=== PATIENT | male | born 1980 | race Caucasian/White ===

== ENCOUNTER 2020-04-23 01:28 | Inpatient (IN) | payer SELFPAY ==
[~2020-04-23] VITALS: Ht 185.4 cm; Wt 104.3 kg
[2020-04-23] VITALS (7 sets, daily range): BP systolic 98–112; BP diastolic 66–76
[2020-04-23] MEDS ORDERED: SODIUM CHLORIDE 0.9% 1000ML 1,000 ML IV ONE ×2 (01:45→04:00)
[2020-04-23] MEDS ORDERED: MULTIVITAMINS- 12 INJECTION 10 ML, FOLIC ACID MDV 5 MG, THIAMINE HCL INJ 100 MG in SODI... IV ONE (01:45)
--- NOTE | 2020-04-23 02:00 | Emergency Department Note ---
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 Any updates have been documented here. Past Medical History Recent Fever: No Clinical Suspicion of Infectio: No New/Unexplained Change in Ment: No Past Medical History: Hepatitis C Other Medical History: BRONCHITIS SEIZURES Past Surgical History: None Social History Smoking Cessation: Current every day smoker Alcohol Use: Occasional Any Illegal Drug Use: Yes Family History Family history of heart diseas: No Review of Systems Review of Systems Constitutional: Reports no symptoms EENTM: Reports no symptoms Cardiovascular: Reports no symptoms Respiratory: Reports no symptoms Gastrointestinal: Reports no symptoms Genitourinary: Reports no symptoms Musculoskeletal: Reports no symptoms Integumentary: Reports no symptoms Neurological: Reports as per HPI Psychological: Reports no symptoms Endocrine: Reports no symptoms Hematological/Lymphatic: Reports no symptoms Physical Exam Related Data Allergies: Coded Allergies: No Known Allergies (Unverified , 04/23/20) Triage Vital Signs Vital Signs Date Time Temp Pulse Resp B/P (MAP) Pulse Ox O2 Delivery O2 Flow Rate FiO2 04/23/20 01:28 99.4 138 18 123/86 98 Room Air Vital signs reviewed: Yes Physical Exam CONSTITUTIONAL Constitutional: Present well-developed, Present well-nourished; Absent distressed HENT HENT: Present normocephalic, Present atraumatic, Present oropharynx clear/moist, Present nose normal, Present other (no injury to tongue or oral mucosa) HENT L/R: Present left ext ear normal, Present right ext ear normal EYES Eyes: Reports PERRL, Reports conjunctivae normal NECK Neck: Present ROM normal PULMONARY Pulmonary: Present effort normal, Present breath sounds normal CARDIOVASCULAR Cardiovascular: Present regular rhythm, Present heart sounds normal, Present capillary refill normal, Present tachycardia (130) GASTROINTESTINAL Abdominal: Present soft, Present nontender, Present bowel sounds normal GENITOURINARY Genitourinary: Present exam deferred SKIN Skin: Present warm, Present dry MUSCULOSKELETAL Musculoskeletal: Present ROM normal NEUROLOGICAL Neurological: Present alert, Present oriented x 3, Present no gross motor or s ensory deficits PSYCHOLOGICAL Psychological: Present mood/affect normal, Present judgement normal Results Laboratory Laboratory Laboratory Tests Test 04/23/20 04:05 04/23/20 04:00 04/23/20 03:27 04/23/20 03:17 Arterial Blood pH 7.47 (7.35-7.45) Arterial Blood Partial Pressure CO2 39 mmHg (35-45) Arterial Blood Partial Pressure O2 72 mmHg (80-105) Arterial Blood HCO3 29 mmol/L (22-26) Arterial Blood Total CO2 30 Arterial Blood Oxygen Saturation 95.0 % (95-98) Arterial Blood Base Excess 5.0 mmol/L (-2 - 3) FiO2 21 % Lactic Acid Level 2.9 mmol/L (0.5-2.0) Urine Color [place] (YELLOW) Urine Clarity Sl cloudy (CLEAR) Urine pH 6 (5 - 7) Urine Specific [place] 1.025 (1.010-1.025) Urine Protein 1+ (NEGATIVE) Urine Glucose (UA) 1+ (NEGATIVE) Urine Ketones 1+ (NEGATIVE) Urine Blood Trace (NEGATIVE) Urine Nitrite Positive (NEGATIVE) Urine Bilirubin Moderate (NEGATIVE) Urine Urobilinogen 8.0 mg/dL (0.2 - 1) Urine Leukocyte Esterase 1+ (NEGATIVE) Urine RBC 11-20 /HPF (0-5) Urine WBC >50 /HPF (0-5) Urine Epithelial Cells Few /LPF (NONE) Urine Transitional Epithelial Cells Few (NONE) Urine Renal Epithelial Cells (NONE) Urine Bacteria Many /HPF (NONE) Urine Opiates Screen Negative (NEGATIVE) Urine Methadone Screen Negative (NEGATIVE) Urine Barbiturates Screen Negative (NEGATIVE) Urine Phencyclidine Screen Negative (NEGATIVE) Urine Amphetamines Screen Negative (NEGATIVE) Urine Methamphetamines Screen Negative (NEGATIVE) Urine Benzodiazepines Screen Negative (NEGATIVE) Urine Cocaine Screen Negative (NEGATIVE) Urine Cannabinoids Screen Negative (NEGATIVE) Ammonia 59 UG/DL (31-123) Test 04/23/20 01:40 White Blood Count 5.55 x10e3/uL (4.8-10.8) Red Blood Count 3.41 x10e6/uL (4.3-5.7) Hemoglobin 11.8 g/dL (14.0-18.0) Hematocrit 33.1 % (38.2-49.6) Mean Corpuscular Volume 97.1 fL (81-99) Mean Corpuscular Hemoglobin 34.6 pg (28-32) Mean Corpuscular Hemoglobin Concent 35.6 g/dL (31-35) Red Cell Distribution Width 14.7 % (11.7-14.4) Platelet Count 104 x10e3/uL (140-360) Neutrophils (%) (Auto) 72.9 % (38.7-80.0) Lymphocytes (%) (Auto) 17.3 % (18.0-39.1) Monocytes (%) (Auto) 7.6 % (4.4-11.3) Eosinophils (%) (Auto) 0.2 % (0.0-6.0) Basophils (%) (Auto) 0.4 % (0.0-1.0) Neutrophils # (Auto) 4.1 (2.1-6.9) Lymphocytes # (Auto) 1.0 (1.0-3.2) Monocytes # (Auto) 0.4 (0.2-0.8) Eosinophils # (Auto) 0.0 (0.0-0.4) Basophils # (Auto) 0.0 (0.0-0.1) Absolute Immature Granulocyte (auto 0.09 x10e3/uL (0-0.1) Sodium Level 133 mmol/L (136-145) Potassium Level 3.2 mmol/L (3.5-5.1) Chloride Level 92 mmol/L (98-107) Carbon Dioxide Level 20 mmol/L (22-29) Anion Gap 24.2 mmol/L (8-16) Blood Urea Nitrogen 18 mg/dL (7-26) Creatinine 0.87 mg/dL (0.72-1.25) Estimat Glomerular Filtration Rate > 60 ML/MIN (60-) BUN/Creatinine Ratio 21 (6-25) Glucose Level 251 mg/dL (74-118) Calcium Level 9.3 mg/dL (8.4-10.2) Total Bilirubin 1.5 mg/dL (0.2-1.2) Aspartate Amino Transf (AST/SGOT) 157 IU/L (5-34) Alanine Aminotransferase (ALT/SGPT) 70 IU/L (0-55) Alkaline Phosphatase 123 IU/L (40-150) Creatine Kinase 20 IU/L (30-200) Creatine Kinase MB 0.30 ng/mL (0-5.0) Troponin I 0.002 ng/mL (0-0.300) Total Protein 7.0 g/dL (6.5-8.1) Albumin 3.4 g/dL (3.5-5.0) Globulin 3.6 g/dL (2.3-3.5) Albumin/Globulin Ratio 0.9 (0.8-2.0) Ethyl Alcohol Level < 10.0 mg/dL (0.0-10.0) Lab results reviewed: Yes Imaging Imaging results reviewed: Yes Impressions Procedure: [id number] CT/CT BRAIN WO Exam Date: Exam Time: REPORT STATUS: Signed CT BRAIN WO HISTORY: Seizure COMPARISON: None. TECHNIQUE: Noncontrast axial scans were obtained from skull base to the vertex. Coronal and sagittal reconstructions obtained from the axial data. One or more of the following dose reduction techniques were used: Automated exposure control, adjustment of the mA and/or kV according to patient size, and/or utilization of iterative reconstruction technique. DISCUSSION: Scalp/Skull: Unremarkable. Brain sulci: Mildly prominent. Ventricles: Mild compensatory dilatation. Extra-axial spaces: No masses or fluid collections. Parenchyma: No abnormal densities. No mass, hemorrhage, or large vascular territory acute infarct. Dural sinuses: No abnormal densities. Sellar/Suprasellar region: Intact. Skull base: Intact. Incidental findings: None. IMPRESSION: 1. No acute intracranial abnormalities. 2. Mild generalized cerebral volume loss. Signed by: Dr. Ike Aguayo M.D. on 04/23/2020 3:13 AM Dictated By: IKE AGUAYO MD [id number] Transcribed By: CATERINA on 04/23/20312 COPY TO: BINDU LIANG MD~ Procedures 12 Lead ECG Interpretation ECG Interpretation : ECG: ECG 1 Kit Planner: Interpreted by ED physician Date: Apr 23, 2020 Time: 01:34 Rhythm: sinus tachycardia Rate: tachycardia BPM: 141 QRS axis: normal ST segments normal: No (non specific changes) T wave inversion: I, II, V3, V4, V5, V6 Other findings: no other findings Clinical Impression: abnormal ECG Assessment & Plan Medical Decision Making MDM Patient presents believe EMS with reported seizure-like activity that lasted approximately 45 seconds. Patient alert and oriented on arrival. Patient states he has been told he had seizures in the past. Has never follow up with neurology. Patient has been drinking EtOH tonight and using marijuana. CBC, CMP, cardiac enzymes, UA, UDS, EtOH, CT brain ordered to eval for electrolyte abnormality, intracranial mass, intracranial bleed, rhabdomyolysis, illicit drug abuse, EtOH Banana bag ordered at 250 mL per hour 1 L. IV normal saline 1 L bolus ordered. 0350 am, pt found to have uti, source time is now, lactic acid ordered, blood cultures ordered, urine culture ordered, rocephin 1 gram iv ordered INITIAL LACTIC ACID 2.[address] GUILLEN ADMIT TO INPATIENT Reassessment Reassessment time: 04:23 Reassessment PT STATES HE FEELS FINE, NO COMPLAINTS AT THIS TIME Assessment & Plan Final Impression: (1) Seizure-like activity (2) UTI (urinary tract infection) (3) Sepsis (4) Dehydration (5) Diabetes Depart Disposition: ADMITTED Last Vital Signs Date Time Temp Pulse Resp B/P (MAP) Pulse Ox O2 Delivery O2 Flow Rate FiO2 04/23/20 01:51 138 22 138/93 97 Room Air 04/23/20 01:28 99.4 Medications in the ED Multivitamins 10 ml/Folic Acid 5 mg/Thiamine HCl 100 mg/Sodium Chloride 1,012 ml @ 250 mls/hr Q4H3M ONCE IV ; Start 04/23/20 at 01:45; Stop 04/23/20 at 05:47 Sodium Chloride 1,000 ml @ 999 mls/hr Q1H1M ONCE IV ; Start 04/23/20 at 01:45; Stop 04/23/20 at 02:45 BINDU LIANG MD Apr 23, 2020 02:00
[2020-04-23] MEDS ORDERED: SODIUM CHLORIDE 0.9% 1000ML 1,000 ML ONE ×2 (02:04→03:53)
[2020-04-23 02:19] LABS: BASOPHILS % 0.4 % (0.0-1.0); EOSINOPHILS % 0.2 % (0.0-6.0); HEMATOCRIT 33.1 % (38.2-49.6); HEMOGLOBIN 11.8 g/dL (14.0-18.0); LYMPHOCYTES % 17.3 % (18.0-39.1); MEAN CORPUSCULAR HEMOGLOBIN 34.6 pg (28-32); MEAN CORPUSCULAR HGB CONC 35.6 g/dL (31-35); MEAN CORPUSCULAR VOLUME 97.1 fL (81-99); MONOCYTES # (AUTO) 0.4 (0.2-0.8); MONOCYTES % 7.6 % (4.4-11.3); NEUTROPHILS # (AUTO) 4.1 (2.1-6.9); NEUTROPHILS % 72.9 % (38.7-80.0); PLATELET COUNT 104 x10e3/uL (140-360); RED BLOOD COUNT 3.41 x10e6/uL (4.3-5.7); RED CELL DISTRIBUTION WIDTH 14.7 % (11.7-14.4)
[2020-04-23 02:32] LABS: ALANINE AMINOTRANSFERASE 70 IU/L (0-55); ALBUMIN 3.4 g/dL (3.5-5.0); ALBUMIN/GLOBULIN RATIO 0.9 (0.8-2.0); ALKALINE PHOSPHATASE 123 IU/L (40-150); ANION GAP 24.2 mmol/L (8-16); BLOOD UREA NITROGEN 18 mg/dL (7-26); BUN/CREATININE RATIO 21 (6-25); CALCIUM 9.3 mg/dL (8.4-10.2); CARBON DIOXIDE 20 mmol/L (22-29); CHLORIDE 92 mmol/L (98-107); CREATININE, SERUM 0.87 mg/dL (0.72-1.25); EST GLOMERULAR FILTRATION RATE > 60 ML/MIN (60-); GLUCOSE 251 mg/dL (74-118); POTASSIUM 3.2 mmol/L (3.5-5.1); SODIUM 133 mmol/L (136-145)
[2020-04-23 02:52] LABS: CREATINE KINASE MB 0.3 ng/mL (0-5.0)
--- NOTE | 2020-04-23 03:16 | Diagnostic Imaging Report ---
CT BRAIN WO HISTORY: Seizure COMPARISON: None. TECHNIQUE: Noncontrast axial scans were obtained from skull base to the vertex. Coronal and sagittal reconstructions obtained from the axial data. One or more of the following dose reduction techniques were used: Automated exposure control, adjustment of the mA and/or kV according to patient size, and/or utilization of iterative reconstruction technique. DISCUSSION: Scalp/Skull: Unremarkable. Brain sulci: Mildly prominent. Ventricles: Mild compensatory dilatation. Extra-axial spaces: No masses or fluid collections. Parenchyma: No abnormal densities. No mass, hemorrhage, or large vascular territory acute infarct. Dural sinuses: No abnormal densities. Sellar/Suprasellar region: Intact. Skull base: Intact. Incidental findings: None. IMPRESSION: 1. No acute intracranial abnormalities. 2. Mild generalized cerebral volume loss. Signed by: Dr. Ike Taylor M.D. on 04/23/2020 3:13 AM
[2020-04-23 03:33] LABS: AMPHETAMINES SCREEN,URINE NEGATIVE (NEGATIVE); PHENCYCLIDINE SCREEN,URINE NEGATIVE (NEGATIVE)
[2020-04-23 03:34] LABS: BENZODIAZEPINES SCREEN,URINE NEGATIVE (NEGATIVE); CLARITY,URINE SL CLOUDY (CLEAR); COLOR,URINE ORANGE (YELLOW); KETONES,URINE 1+ (NEGATIVE); LEUKOCYTE ESTERASE ,URINE 1+ (NEGATIVE); NITRITE,URINE POSITIVE (NEGATIVE); PROTEIN,URINE DIPSTICK 1+ (NEGATIVE)
[2020-04-23 03:35] LABS: BILIRUBIN,URINE MODERATE (NEGATIVE)
[2020-04-23 03:49] LABS: BACTERIA,URINE MANY /HPF; EPITHELIAL CELLS,URINE FEW /LPF; TRANSITIONAL EPI CELLS,URINE FEW; WBC,URINE (MAN) >50 /HPF (0-5)
[2020-04-23] MEDS ORDERED: CEFTRIAXONE SOD 1 GM/NS 50 ML 50 ML IV ONE (04:00)
[2020-04-23 04:17] LABS: ABG HCO3 29 mmol/L (22-26); ABG PCO2 39 mmHg (35-45); ABG PH 7.47 (7.35-7.45); ABG PO2 72 mmHg (80-105); ABG TCO2 30
[2020-04-23] MEDS ORDERED: POTASSIUM CHLORIDE 20 MEQ TAB CR PO STA (04:20)
--- NOTE | 2020-04-23 04:22 | NUR ---
ER MD AND PRIMARY RN NOTIFIED AND AWARE OF CRITICAL LAB VALUE, LACTIC ACID 2.9.
[2020-04-23] MEDS: SODIUM CHLORIDE 0.9% 1000ML 1,000 ML IV SCH ×4 (04:28→21:02)
[2020-04-23] MEDS ORDERED: ONDANSETRON HCL INJ 2MG/ML 2ML 2 MG/ML VIAL IV PRN (04:30)
[2020-04-23] MEDS ORDERED: POTASSIUM CHLORIDE 10MEQ EA PO ONE (04:30)
[2020-04-23] MEDS ORDERED: DEXTROSE 50% SYRINGE 50 ML IV PRN (04:30)
[2020-04-23] MEDS ORDERED: POTASSIUM CHLORIDE 10MEQ EA ONE (04:34)
--- NOTE | 2020-04-23 04:42 | Diagnostic Imaging Report ---
EXAMINATION: CHEST SINGLE (PORTABLE) INDICATION: s/p seizure COMPARISON: None FINDINGS: TUBES and LINES: None. LUNGS: Normal lung volumes. Lungs are clear. No consolidations. PLEURA: No pleural effusion or pneumothorax. HEART AND MEDIASTINUM: The cardiomediastinal silhouette is unremarkable. BONES AND SOFT TISSUES: No acute osseous lesion. Soft tissues are unremarkable. UPPER ABDOMEN: No free air under the diaphragm. IMPRESSION: No acute thoracic radiographic abnormality. Signed by: Justin Ying MD on 04/23/2020 4:38 AM
--- NOTE | 2020-04-23 06:15 | NUR ---
PATIENT RECEIVED FROM ER. PATIENT IS AAOX2, INTERMITTENT CONFUSION. RESP EVEN AND UNLABORED. NO ACUTE DISTRESS NOTED. TELE IN PLACE NOTED. ORIENTED TO ROOM. EDUCATED PT ABOUT FALL PRECAUTIONS. PT VERBALIZED UNDERSTANDING. CALL LIGHT WITHIN EASY REACH. INSTRUCTED PT TO USE CALL LIGHT FOR ALL THE NEEDS. BED IS LOW AND LOCKED. SIDE RAILS X2. PT DENIES NEEDS AT THIS TIME. CONTINUE TO MONITOR CLOSELY
[2020-04-23] MEDS: INSULIN REGULAR, HUMAN 100 UNIT/1 ML 3ML VIAL SQ SCH ×4 (07:30→21:03)
[2020-04-23] MEDS ORDERED: ACETAMINOPHEN 325 MG TAB PO PRN (09:00)
[2020-04-23 10:14] LABS: CREATINE KINASE MB 0.4 ng/mL (0-5.0)
[2020-04-23] MEDS: CEFEPIME 1GM/NS 0.9% 50 ML 50 ML IV SCH ×2 (11:04→21:02)
[2020-04-23] MEDS ORDERED: CYANOCOBALAMIN 1,000 MCG TAB PO ONE (13:15)
[2020-04-23 15:38] LABS: THYROID STIMULATING HORMONE 0.894 uIU/mL (0.350-4.940)
[2020-04-23 16:08] LABS: PHENYTOIN (DILANTIN) < 0.50 ug/mL (10-20); VALPROIC ACID < 2 ug/mL (50-100)
[2020-04-23] MEDS: LEVETIRACETAM 500 MG TAB PO SCH (16:13)
--- NOTE | 2020-04-23 16:38 | Consultation ---
DATE OF CONSULTATION: 04/23/2020 Neurology Consultation HISTORY OF PRESENT ILLNESS: Mr. Abraham Tolentino is a 39-year-old male, who reports history of diabetes and comes in for nocturnal seizures. He is very confused. He is a very poor historian. He seems to be somewhat disoriented to this situation, although he does know he is in the hospital. He knows he is here for seizures. He states he has slept well in the last 5 days and he falls asleep multiple times during our physical exam and conversations, suggesting encephalopathy or possibly even narcolepsy or sleep disorder. He states that he had a seizure and he was brought in by an ambulance because his girlfriend was with him. At that time, he himself does not recall. He states he has at least 5 seizures in the last 3 years. He was put on antiepileptic therapy, although during the conversation, he mentions that he did have once as a teenager and also during the conversation, he mentions that he has had possibly 10 seizures since he was a teenager. Again, his history is somewhat disjointed and he is a poor historian. Otherwise states he has been under a lot of stress. He has not been taking his medications as prescribed, although he is not taking antiepileptics. He should be on diabetes medications. His issues are primarily familial and financial that have been interrupting his normal self care routines. He does admit to drinking in the past, but has not been drinking recently. His UA is positive and he also admits to multiple concussions in the past, although none recently. FAMILY HISTORY: Positive for stroke. No epilepsy. SOCIAL HISTORY: Mentioned above. He has a history of alcohol use, but no tobacco or drugs. PHYSICAL EXAMINATION: VITAL SIGNS: Stable at this time. His temperature is 97.9. He is tachycardic 103. His blood pressure 109/75. HEENT: His exam shows extraocular muscles intact. Face symmetric. Tongue is midline. Speech is clear and coherent, although he is distractible. He falls asleep during the exam. His sentence structure is normal. He has no nuchal rigidity. His trachea is midline. There are no rashes in the axilla. He is not dysarthric to the exam, although he told me that another physician mentioned that he was dysarthric. I did not notice in this exam. CARDIOVASCULAR: Regular rate and rhythm. PULMONARY: Clear to auscultation. ABDOMEN: Soft. There is no bladder distention. There is no ascites in the abdomen. NEUROLOGIC: Strength is 5/5 in upper and lower extremities. Reflexes are 1/4. Sensory is grossly intact. There is no ataxia or tremors noted on exam. There is no myotonia or fasciculations noted on exam. ASSESSMENT AND PLAN: I am seeing the patient for seizure, definitely not a first-time event, but how frequently is unclear whether or not he should be on medications. He seems to state that he should not be on medications, although he has been on them in the past, despite having had 5 seizures in about 2 to 3 years. He does state that he has had a seizure workup, but he is okay repeating it, so we are going to get an EEG. I would recommend an MRI of the brain as well as serological test for ammonia, uric acid, and B12 levels given his level of cognitive difficulty at this point. We will initiate him on Keppra 500 p.o. b.i.d. as well as thiamine and then speech evaluation is also recommended. RYAN KING MD RR/MODL /[id number]
[2020-04-23 17:00] LABS: CREATINE KINASE MB 0.4 ng/mL (0-5.0)
--- NOTE | 2020-04-23 18:48 | NUR ---
Report given to oncoming nurse of patients status. Resting in bed. AAOX3 to time, person, place. Respirations even and unlabored. Side rails upx2, call light within reach. Addendum: 04/23/20 at 1849 by CHANTALE EMERSON RN ERROR
--- NOTE | 2020-04-23 19:07 | NUR ---
Report given to oncoming nurse of patient's status. NO s/s acute distress noted. Side rails upx2, call light within reach, bed alarm on.
--- NOTE | 2020-04-23 19:15 | NUR ---
PATIENT RECEIVED. PATIENT IS AAOX2 WITH INTERMITTENT CONFUSION. RESP EVEN AND UNLABORED. NO ACUTE DISTRESS NOTED. TELE IN PLACE NOTED. EDUCATED PT ABOUT FALL PRECAUTIONS. PT VERBALIZED UNDERSTANDING. CALL LIGHT WITHIN EASY REACH. INSTRUCTED PT TO USE CALL LIGHT FOR ALL THE NEEDS. BED IS LOW AND LOCKED. SIDE RAILS X2. BED ALARM IS ON. PT DENIES NEEDS AT THIS TIME. CONTINUE TO MONITOR CLOSELY
--- NOTE | 2020-04-23 19:18 | History and Physical ---
CHIEF COMPLAINT: Questionable seizure-like activity. HISTORY OF PRESENT ILLNESS: Information currently being obtained from the nursing staff as the patient seems to be a bit confused and unable to give me the full history. This is a 39-year-old male, who apparently came in yesterday with concern for seizure-like activity. According to the nursing staff and the patient's girlfriend called and stated that he had some seizures and he does not have a history of seizures and this all occurred yesterday and brought him in for further evaluation and management. Apparently, the patient is a chronic alcoholic and he also abuses marijuana. He reports his last alcohol drink was weeks ago, but after further investigation, he reports that his last drink was maybe several days ago. He also endorses taking marijuana at home. He stated several days ago. His urine drug screen was found to be negative as well as alcohol level. The patient was alert, awake. He was oriented x2 on examination. He has no pain at this time. According to the nursing staff, the girlfriend states that he has not been able to walk for significant period of time as well ongoing for the last 2 to 3 weeks. The patient is very weak on examination. The patient is seen and evaluated at bedside on the medical floor, currently stable on examination. REVIEW OF SYSTEMS: Pertinent positive questionable seizure-like activity, confusion. Unable to obtain the rest of the 14-point review of system due to the patient's underlying confusion. ALLERGIES: NO KNOWN DRUG ALLERGIES. HOME MEDICATIONS: None. PAST MEDICAL HISTORY: None. PAST SURGICAL HISTORY: None. FAMILY HISTORY: None. SOCIAL HISTORY: He is a chronic alcoholic, reported drinking several weeks ago, but then endorsed that he drank several days ago, drinks about a 12 pack every two days. He has a history of marijuana usage. Denies any other drugs. He reports no reports of any smoking history. PHYSICAL EXAMINATION: VITAL SIGNS: Temperature is 97.8, pulse is 120, respiratory rate is 21. His last blood pressure recorded was 98/66, but he is stable. He is saturating 100% on room air. GENERAL: Note in acute distress. He is alert, oriented x2. He is a bit confused on examination. HEENT: Head normocephalic, atraumatic. Eyes; pupils are equal, round, and reactive to light bilaterally. PULMONARY: Clear to auscultation bilaterally. No wheezing, rales, or rhonchi. No crackles appreciated. CARDIOVASCULAR: Positive S1, S2. No murmurs, rubs, or gallops. ABDOMEN: Soft, nondistended, nontender to palpation. Bowel sounds present. MUSCULOSKELETAL: Strength 5/5 throughout. He is very weak on examination. NEUROLOGICAL: He is confused on exam, but he is alert, oriented, may be possibly x2. SKIN: Intact. Warm to touch. Good cap refill. PSYCHIATRIC: Confused on examination. EXTREMITIES: No edema. Good range of motion throughout. LABORATORY FINDINGS: Show white count was 5.5, hemoglobin 11.8, hematocrit 33, platelets of 104. Chemistry, sodium was 133, potassium 3.2, chloride 92, bicarb is 20, anion gap of 24, BUN is 18, creatinine is 0.87, glucose is 251. His hemoglobin A1c found to be 5.2. His calcium level 9.3. Lactic acid on admission 2.9, now 1.6, AST 157, ALT 70, alkaline phosphatase is 123. Ammonia level was 59, albumin 3.4. TSH is 0.894. Urinalysis consistent for UTI. Toxicology urine drug screen negative. Phenytoin, valproic acid negative. Ethyl alcohol was negative. Phenobarbital level is pending. Serology coronavirus pending. Microbiology, blood and urine cultures are pending. IMAGING STUDIES: CT of the brain, no acute intracranial abnormality. Mild generalized cerebral volume loss. Chest x-ray, no acute thoracic radiographic abnormality. IMPRESSION: 1. Metabolic encephalopathy, unknown etiology, but concern for polysubstance abuse. 2. Urinary tract infection. 3. Generalized weakness. 4. Polysubstance abuse. 5. Electrolyte abnormalities. 6. Concerns for underlying seizures. At this time, CT brain was found to be negative. MRI of the brain and EEG has been ordered. Neurology has been consulted and the patient was initiated on Keppra. As for his UTI, he is currently on IV cefepime, monitored cultures very closely. His white count was normal. He is currently afebrile. As for his generalized weakness, I will go ahead and get physical therapy as well to come work with the patient. He does have a history of polysubstance abuse and his urine drug screen and his alcohol level is normal. As for his seizures, he was started on Keppra. Put him on a regular diet. Hold anticoagulation for now until MRI of the brain is back in negative. Put on SCDs. The patient seems to be confused on exam. Etiology is pending workup. Consultants involved neurology. Discussed plan of care with nursing staff. MD ALEX Parmar/SUSANA /[id number]
[2020-04-24] VITALS (8 sets, daily range): BP systolic 99–117; BP diastolic 69–81
[2020-04-24] MEDS ORDERED: CEFTRIAXONE SOD 1 GM/NS 50 ML 50 ML IV SCH (04:30)
[2020-04-24] MEDS: INSULIN REGULAR, HUMAN 100 UNIT/1 ML 3ML VIAL SQ SCH ×4 (07:30→21:00)
[2020-04-24 07:35] LABS: BASOPHILS % 0.6 % (0.0-1.0); EOSINOPHILS % 1.3 % (0.0-6.0); HEMATOCRIT 28.7 % (38.2-49.6); LYMPHOCYTES # (AUTO) 1.3 (1.0-3.2); LYMPHOCYTES % 42.8 % (18.0-39.1); MEAN CORPUSCULAR HEMOGLOBIN 34.2 pg (28-32); MEAN CORPUSCULAR HGB CONC 31.4 g/dL (31-35); MEAN CORPUSCULAR VOLUME 109.1 fL (81-99); MONOCYTES # (AUTO) 0.3 (0.2-0.8); MONOCYTES % 9.9 % (4.4-11.3); NEUTROPHILS # (AUTO) 1.3 (2.1-6.9); NEUTROPHILS % 41.9 % (38.7-80.0); PLATELET COUNT 92 x10e3/uL (140-360); RED BLOOD COUNT 2.63 x10e6/uL (4.3-5.7); RED CELL DISTRIBUTION WIDTH 15.4 % (11.7-14.4)
[2020-04-24] MEDS: CEFEPIME 1GM/NS 0.9% 50 ML 50 ML IV SCH ×2 (08:14→21:00)
[2020-04-24] MEDS: LEVETIRACETAM 500 MG TAB PO SCH ×2 (08:14→17:13)
[2020-04-24] MEDS: THIAMINE HCL 100 MG TAB PO SCH (08:15)
[2020-04-24] MEDS: SODIUM CHLORIDE 0.9% 1000ML 1,000 ML IV SCH (08:19)
[2020-04-24 08:20] LABS: ALANINE AMINOTRANSFERASE 106 IU/L (0-55); ALBUMIN 2.8 g/dL (3.5-5.0); ALKALINE PHOSPHATASE 89 IU/L (40-150); ANION GAP 16.5 mmol/L (8-16); BLOOD UREA NITROGEN 8 mg/dL (7-26); BUN/CREATININE RATIO 14 (6-25); CARBON DIOXIDE 22 mmol/L (22-29); CHLORIDE 106 mmol/L (98-107); CREATININE, SERUM 0.57 mg/dL (0.72-1.25); EST GLOMERULAR FILTRATION RATE > 60 ML/MIN (60-); GLUCOSE 114 mg/dL (74-118); POTASSIUM 3.5 mmol/L (3.5-5.1); SODIUM 141 mmol/L (136-145)
--- NOTE | 2020-04-24 11:09 | NUR ---
GAVE PACKET OF INFORMATION WITH [facility] [employer] FOR ASSISTANCE WITH LOW TO NO INCOME TO PATIENT. RESOURCES THAT PATIENT MAY BE ABLE TO FOLLOW UP UPON DISCHARGE. PT EDUCATED ON EACH RESOURCE AND UNDERSTANDING HOW TO FOLLOW UP TO SEE IF QUALIFIED FOR EACH RESOURCE.
--- NOTE | 2020-04-24 12:11 | NUR ---
awake less sleepy than yesterday and more oriented but still confused he does remember me from yesterday. so short term memory seems intact vs patient confabulation 98.4 107 113/72 HEENT: His exam shows extraocular muscles intact. Face symmetric. Tongue is midline. Speech is clear and coherent, although he is distractible. He falls asleep during the exam. His sentence structure is normal. He has no nuchal rigidity. His trachea is midline. There are no rashes in the axilla. He is not dysarthric to the exam CARDIOVASCULAR: Regular rate and rhythm. PULMONARY: Clear to auscultation. ABDOMEN: Soft. There is no bladder distention. There is no ascites in the abdomen. NEUROLOGIC: Strength is 5/5 in upper and lower extremities. Reflexes are 1/4. Sensory is grossly intact. There is no ataxia or tremors noted on exam. There is no myotonia or fasciculations noted on exam. ASSESSMENT AND PLAN: confabulation vs short term memory difficuly- seems to be improving- speech and congitive therapy and rehab continue b12/b1 continue keppra x 6 mo outpt neurology follow up myoglobin pending
--- NOTE | 2020-04-24 16:49 | Diagnostic Imaging Report ---
EXAMINATION: MRI of the brain without contrast. HISTORY: Confusion, diabetes, dehydration COMPARISON: Head CT 04/23/2020 TECHNIQUE: Sagittal T2; axial DWI, T2, FLAIR, T1-IR, T2 gradient echo; coronal FLAIR. FINDINGS: Parenchyma: 1. No abnormal signal intensity 2. No mass, hemorrhage, acute or chronic infarcts. Skull: Unremarkable. Vessels: Expected flow voids present in the major arteries and dural sinuses. Extra-axial spaces: No abnormal signal intensity or mass effect. Brain volume: Mild generalized brain volume loss, slightly more than what is expected for patient's age. Ventricles: No hydrocephalus or displacement. Foramen magnum: Unremarkable. Sella: Unremarkable. Paranasal / mastoid sinuses: No significant inflammatory disease. IMPRESSION: No acute intracranial abnormalities, particularly no infarct, hemorrhage or mass. Signed by: Dr. Marti Liu M.D. on 04/24/2020 4:46 PM
--- NOTE | 2020-04-24 19:20 | NUR ---
Report given to oncoming nurse of patient's status. Resting in bed. AAOX2 person,place. Respirations even and unlabored. Side rails upx2, call light within reach, bed alarm on.
--- NOTE | 2020-04-24 20:06 | NUR ---
RECEIVED PT IN BED AOX2 .RESPIRATIONS ARE EVEN AND UNLABORED ,DENIES PAIN CALL LIGHT WITH IN REACH ,CONTINUE TO MONITOR
[2020-04-25] VITALS (7 sets, daily range): BP systolic 100–123; BP diastolic 64–94
[2020-04-25] MEDS: SODIUM CHLORIDE 0.9% 1000ML 1,000 ML IV SCH ×2 (00:24→13:51)
--- NOTE | 2020-04-25 02:29 | Progress Note ---
DATE: 04/24/2020 Medicine Progress Note SUBJECTIVE: The patient seems to be still confused on examination and at times he is awake, alert, and oriented and at times, he is confused. PHYSICAL EXAMINATION: VITAL SIGNS: Temperature is 99, pulse 114, respiratory rate is 19, blood pressure 138/74, pulse ox 98% on room air. GENERAL: Not in acute distress. Alert and oriented x2. PULMONARY: Clear to auscultation bilaterally. No wheezing, rales, or rhonchi. No crackles appreciated. CARDIOVASCULAR: Positive S1, S2. No murmurs, rubs, or gallops. ABDOMEN: Soft, nondistended, nontender to palpation. Bowel sounds present. MUSCULOSKELETAL: Strength 5/5 throughout. No evidence of any muscle deficits on examination. NEUROLOGICAL: Alert and oriented x2, still confused on examination. SKIN: Intact. Warm to touch. Good cap refill. PSYCHIATRIC: Normal affect and mood. EXTREMITIES: No edema. Good range of motion throughout. LABORATORY DATA: Show white count 3.1, hemoglobin 9, hematocrit 28.7, platelets of 192. Chemistry; sodium 139, potassium 3.5, chloride 106, bicarb 22, anion gap of glucose 114, hemoglobin A1c 5.2. Uric acid was found to be 8 and total bilirubin is 1.2. AST was 604. ALT , alkaline phosphatase is 89. Ammonia level was 88 within normal range. TSH level was 5.894. Prolactin level, none reported. Coronavirus pending. Microbiology, blood cultures, no growth to date. Urine cultures, no growth. IMAGING STUDIES: MRI of the brain, no acute intracranial abnormalities particularly mass effect. EEG pending. IMPRESSION: 1. Metabolic encephalopathy of unknown etiology, but concern for polysubstance abuse. 2. Urinary tract infection. 3. Generalized weakness. 4. Polysubstance abuse. 5. Electrolyte abnormalities. 6. Concerns for underlying seizures. PLAN: At this time, CT brain negative, EEG is pending. Neurology is following. He is on Keppra. As for his UTI, he is on IV antibiotics. Blood cultures, no growth in terms of blood and urine. Get repeat labs in the morning. Work with physical therapy and occupation therapy as he is very weak. Urine drug screen was found to be negative including alcohol level. Continue with Lovenox for DVT prophylaxis. Consultants involved is Neurology. MD ALEX Parmar/SUSANA /[id number]
[2020-04-25 05:26] LABS: BASOPHILS % 0.5 % (0.0-1.0); EOSINOPHILS # (AUTO) 0.1 (0.0-0.4); EOSINOPHILS % 1.7 % (0.0-6.0); HEMATOCRIT 26.1 % (38.2-49.6); HEMOGLOBIN 8.7 g/dL (14.0-18.0); LYMPHOCYTES # (AUTO) 1.8 (1.0-3.2); LYMPHOCYTES % 44.1 % (18.0-39.1); MEAN CORPUSCULAR HEMOGLOBIN 33.9 pg (28-32); MEAN CORPUSCULAR HGB CONC 33.3 g/dL (31-35); MEAN CORPUSCULAR VOLUME 101.6 fL (81-99); MONOCYTES # (AUTO) 0.5 (0.2-0.8); NEUTROPHILS # (AUTO) 1.5 (2.1-6.9); NEUTROPHILS % 34.7 % (38.7-80.0); PLATELET COUNT 109 x10e3/uL (140-360); RED BLOOD COUNT 2.57 x10e6/uL (4.3-5.7); RED CELL DISTRIBUTION WIDTH 15.2 % (11.7-14.4)
[2020-04-25 05:55] LABS: ANION GAP 13.7 mmol/L (8-16); BLOOD UREA NITROGEN 8 mg/dL (7-26); BUN/CREATININE RATIO 14 (6-25); CALCIUM 8.4 mg/dL (8.4-10.2); CARBON DIOXIDE 25 mmol/L (22-29); CHLORIDE 105 mmol/L (98-107); CREATININE, SERUM 0.58 mg/dL (0.72-1.25); EST GLOMERULAR FILTRATION RATE > 60 ML/MIN (60-); GLUCOSE 113 mg/dL (74-118); POTASSIUM 3.7 mmol/L (3.5-5.1); SODIUM 140 mmol/L (136-145)
--- NOTE | 2020-04-25 06:47 | NUR ---
PT IS CONFUSED OFF AND ON AND PULLED THE IV OUT AND PUT NEW ONE LEFT WRIST DENIES PAIN ,CALL LIGHT WITH IN REACH ,CONTINUE TO MONITOR
[2020-04-25] MEDS: INSULIN REGULAR, HUMAN 100 UNIT/1 ML 3ML VIAL SQ SCH ×4 (07:30→21:38)
--- NOTE | 2020-04-25 07:54 | NUR ---
BEDSIDE REPORT GIVEN TO THE ONCOMING NURSE
[2020-04-25] MEDS ORDERED: LORAZEPAM 0.5 MG TAB PO PRN (09:45)
[2020-04-25] MEDS ORDERED: RISPERIDONE 0.5 MG TAB PO PRN (09:45)
--- NOTE | 2020-04-25 10:17 | NUR ---
eeg - 30 min 10/20 international electrode placement eeg data posterior dominant rythm - 9hz reactive anterior beta frequency 16-22hz no sleep captured EEG interpretation normal no abnormalities noted on EEG
--- NOTE | 2020-04-25 10:21 | NUR ---
awake less sleepy than yesterday and more oriented but still confused he does remember me from yesterday. so short term memory seems intact vs patient confabulation 99 114 103/74 HEENT: His exam shows extraocular muscles intact. Face symmetric. Tongue is midline. Speech is clear and coherent, although he is distractible. He falls asleep during the exam. His sentence structure is normal. He has no nuchal rigidity. His trachea is midline. There are no rashes in the axilla. He is not dysarthric to the exam CARDIOVASCULAR: Regular rate and rhythm. PULMONARY: Clear to auscultation. ABDOMEN: Soft. There is no bladder distention. There is no ascites in the abdomen. NEUROLOGIC: Strength is 5/5 in upper and lower extremities. Reflexes are 1/4. Sensory is grossly intact. There is no ataxia or tremors noted on exam. There is no myotonia or fasciculations noted on exam. ASSESSMENT AND PLAN: confabulation vs short term memory difficuly- seems to be improving- speech and congitive therapy and rehab continue b12/b1 continue keppra x 6 mo outpt neurology follow up myoglobin pending confusion is short term memory diffiuclty, no evidence of subclinical seizure but should be on AED at least 6 mo reorient and speech and congnitive therapy neurocognitive testing as outpt
[2020-04-25] MEDS: LEVETIRACETAM 500 MG TAB PO SCH ×2 (10:25→17:21)
[2020-04-25] MEDS: THIAMINE HCL 100 MG TAB PO SCH (10:25)
[2020-04-25] MEDS: CEFEPIME 1GM/NS 0.9% 50 ML 50 ML IV SCH ×2 (10:27→20:56)
[2020-04-25 11:43] LABS: BAND NEUTROPHILS % (MANUAL) 4 %; MONOCYTES % (MANUAL) 10 % (3.4-9.0); NEUTROPHILS % (MANUAL) 86 % (40-74)
--- NOTE | 2020-04-25 12:37 | Consultation ---
DATE OF CONSULTATION: 04/25/2020 Psychiatric Consultation REASON FOR CONSULTATION: To evaluate the patient's psychosis. HISTORY OF PRESENT ILLNESS: The patient is a 39-year-old male admitted to the hospital for dehydration and diabetes. Psychiatric consultation is called to evaluate the patient's psychosis. As per medical record, the patient has history of UTI, history of alcohol and marijuana, and history of diabetes. The patient came to the hospital confused and poor historian. He was brought by the ambulance, but he was not able to report to the attending or managing consultant clinical professor why he is in the hospital. He also reported seizures within the last 3 years. Upon evaluation today, the patient is found to be in the room. He is oriented to self and place and year, and knows the current president of [facility], however, he is unable to state the reason why he is in the hospital. He claims that he was taken to the hospital by his for unknown reason, although medical note indicated that he was taken to the hospital by the ambulance for some seizure-like activity. The patient claims he is feeling fair at this time. He is somewhat stressed and I believe that his dad's medical issues may worsen and believes that his dad recently . However, the patient states that he is not too distressed about this. The father has been in a lot of pain. The patient denies any feeling of hopelessness or helplessness. He denies any suicidal or homicidal ideation. He denies any hallucination. He denies any problem with sleep or appetite. PAST PSYCHIATRIC HISTORY: The patient states he has seen psychiatrist before for stress-related issues. He denies past suicide attempts. He claims he drinks about 2 or 3 times a day, but mostly during day and about 2 or 3 shots of hard liquor. The patient denies any drug use. FAMILY HISTORY: Denies. SOCIAL HISTORY: The patient states he lives with his . MENTAL STATUS EXAM: The patient is a young male. He is alert, awake, and oriented to self and place, but oriented to situation. Mood is anxious. Affect is blunt. Psychomotor state is passive. Denies suicidal or homicidal ideation. Denies any hallucination. Thought process is concrete. No delusion elicited. Insight and judgment are limited. Memory appears to be impaired to short-term. CURRENT MEDICATIONS: 1. Cefepime. 2. Insulin. 3. Keppra. 4. Thiamine. 5. Sodium chloride. 6. Lovenox. 7. Tylenol. 8. Dextrose. 9. Zofran. CURRENT LABORATORY DATA: WBC 4.17, RBC 2.57, hemoglobin 8.7, hematocrit 26.1, and platelets 109. Sodium 140, potassium 3.7, chloride 105, CO2 25, BUN 8, and creatinine 0.58. Toxicology is negative for illicit drugs. ASSESSMENT: 1. Adjustment disorder with anxious mood. 2. Alcohol use. 3. Rule out psychosis. PLAN: 1. Add Risperdal 0.5 mg p.o. q.6 hours as needed. 2. Add Ativan 0.5 mg p.o. q.6 hours. 3. Add Zoloft 50 mg p.o. daily. 4. Recommend alcohol cessation. 5. Monitor for mood. 6. Supportive therapy and also monitor for psychosis such as hallucination. Dictated by Betsy Ventura PA-C Vinicio Haywood MD QTV/MODL /[id number]
[2020-04-25] MEDS ORDERED: ENOXAPARIN SOD INJ 40 MG/0.4 ML SYR SC SCH (17:00)
--- NOTE | 2020-04-25 17:02 | NUR ---
Nutrition Screen Note RD Recommendation for Physician: - Continue 1800 ADA Plan of Care: RD following, monitoring for tolerance and adequacy Nutrition reason for involvement: Nutrition Risk Trigger- MST Primary Diagnose(s): dehydration, DM, seizure-like activity PMH: DM, ETOH abuse Ht: 73 in Wt: 230 lbs BMI: 30.3 kg/m2 IBW: [address] Assessment: (04/25) 39 YOM admitted for dehydration, seizure-like activity, and AMS. Pt evaluated today per MST screen. Pt with continued confusion, unable to obtain complete hx. Pt with good appetite and intake, noted 75-100% currently. No wt loss indicated on admit. No GI distress reported. Chart reviewed. Labs and meds reviewed. Will continue to monitor. Current Diet: 1800 ADA Malnutrition Evaluation (04/25/20) The patient does not meet criteria for a specified degree of malnutrition at this time. Will re-evaluate at follow-up as appropriate. Diet Education Needs Assessment: Diet education not indicated. Diet tolerance: tolerating po Nutrition Care Level: low Signed: Susu Obando RD, LD, [facility]
[2020-04-26] VITALS: BP 113/74
--- NOTE | 2020-04-26 01:45 | Progress Note ---
DATE: 04/25/2020 Medicine Progress Note SUBJECTIVE: The patient is very confused today on exam. He is alert, awake, and oriented x2 only. . PHYSICAL EXAMINATION: VITAL SIGNS: Temperature is 97.9, pulse 73, respiratory rate is 18, blood pressure 120/79, pulse ox 99% on room air. GENERAL: In no acute distress. Alert and oriented x2 . PULMONARY: Clear to auscultation bilaterally. No wheezing, rales, or rhonchi. No crackles appreciated. CARDIOVASCULAR: Positive S1 and S2. No murmurs, rubs, or gallops appreciated. ABDOMEN: Soft, nondistended, nontender to palpation. Bowel sounds positive. MUSCULOSKELETAL: Strength is 5/5 throughout. No evidence of muscle deficits on examination NEUROLOGICAL: Alert and oriented x2. EXTREMITIES: No edema. Good range of motion throughout. LABORATORY DATA: Labs show white count 4.1, hemoglobin 8.7, hematocrit is 26, MCV 101, and platelets of 109. Chemistry; sodium 140, potassium 3.7, chloride 105, bicarb 25, anion gap of 13, BUN is 8, creatinine is 0.58, glucose 132, calcium is 8.4. Urinalysis noted. Coronavirus not detected. MICROBIOLOGY: All negative. IMAGING STUDIES: Negative. IMPRESSION: 1. Metabolic encephalopathy, seems to be improving, unknown etiology, could be secondary to encephalopathy due to alcohol abuse. 2. Urinary tract infection. 3. Generalized weakness. 4. Polysubstance abuse. 5. Electrolyte abnormalities. 6. Concerns for underlying seizures. PLAN: At this time, CT brain negative, MRI of the brain negative, EEG was normal. Continue with Sergio for 6 months according to Neurology's note. His urine cultures and blood cultures were all negative. He is on IV antibiotic therapy. Continue with PT and OT. I will discuss along with Neurology if any further testing. At this time, we will continue same plan of care and monitor very closely. MD ALEX Parmar/SUSANA /[id number]
[2020-04-26 04:00] VITALS: BP 143/91
[2020-04-26] MEDS: SODIUM CHLORIDE 0.9% 1000ML 1,000 ML IV SCH (06:14)
--- NOTE | 2020-04-26 07:21 | NUR ---
awake less sleepy than yesterday and more oriented but still confused he does remember me from yesterday. so short term memory seems intact vs patient confabulation 96.7 67 113/74 HEENT: His exam shows extraocular muscles intact. Face symmetric. Tongue is midline. Speech is clear and coherent, although he is distractible. He falls asleep during the exam. His sentence structure is normal. He has no nuchal rigidity. His trachea is midline. There are no rashes in the axilla. He is not dysarthric to the exam CARDIOVASCULAR: Regular rate and rhythm. PULMONARY: Clear to auscultation. ABDOMEN: Soft. There is no bladder distention. There is no ascites in the abdomen. NEUROLOGIC: Strength is 5/5 in upper and lower extremities. Reflexes are 1/4. Sensory is grossly intact. There is no ataxia or tremors noted on exam. There is no myotonia or fasciculations noted on exam. ASSESSMENT AND PLAN: confabulation vs short term memory difficuly- seems to be improving- speech and congitive therapy and rehab continue keppra 500 mg po bid x 6 mo outpt neurology follow up confusion is short term memory diffiuclty, no evidence of subclinical seizure but should be on AED at least 6 mo reorient and speech and congnitive therapy neurocognitive testing as outpt
[2020-04-26] MEDS: INSULIN REGULAR, HUMAN 100 UNIT/1 ML 3ML VIAL SQ SCH ×2 (07:30→11:30)
[2020-04-26 07:31] VITALS: BP 135/84
[2020-04-26] MEDS: CEFEPIME 1GM/NS 0.9% 50 ML 50 ML IV SCH (08:46)
[2020-04-26] MEDS: LEVETIRACETAM 500 MG TAB PO SCH (08:46)
[2020-04-26] MEDS: THIAMINE HCL 100 MG TAB PO SCH (08:46)
[2020-04-26 09:00] VITALS: BP 135/84
[2020-04-26] MEDS ORDERED: SERTRALINE HCL 50 MG TAB PO SCH (09:00)
[2020-04-26 11:29] VITALS: BP 131/91
--- NOTE | 2020-04-26 11:30 | NUR ---
Physical therapy here to see pt and at first refused to even sit up in bed. Accompanied PT to patient to room he was agreeable to do bedside exercise but refused to stand and/or walk.
--- NOTE | 2020-04-26 12:30 | NUR ---
Pt in room after PT. He is alert and orientated to place, person and time. Pt is adamant that he wants to go home, he states that he can go home and do the same thing he is doing here. Pt is not a harm to himself or others. Physician was here and explained the risks involved by leaving against medical advice, but he is insisting on leaving. I saw no confusion when physician was here to see patient, He was very lucid at this time. He knew year, where he was and time. He does agree to wait until psych come to see him before he leaves.
--- NOTE | 2020-04-26 13:37 | Progress Note ---
DATE: 04/26/2020 Medicine Progress Note SUBJECTIVE: I came to see and evaluate the patient at bedside with the nurse, Faye and the housekeeper cleaning cooking, Humberto and which the patient insisted on leaving against medical advice. I asked the patient several question and he was able to answer several questions appropriately. The patient was alert and oriented to situation and time. He knows where he is at. He knows the name of the hospital. He knows the year. He knows the president. He was able to answer a lot of appropriate questions, in which he has improved compared to prior days. It seems that the patient is currently at his normal baseline. I spoke with Psychiatry to come and evaluate him as well. They felt yesterday that he was improving tremendously and seems to be at his baseline. I explained the risks involved in terms of leaving against medical advice at bedside. We also discussed this with his scientific artist by phone and they understand the situation and verbalized understanding. When Psychiatry evaluates him and if they feel he is with it, then he may be able to leave against medical advice. The patient is not a harm to himself or harm to others when I talked to him as well. It seems that the patient is currently at his baseline and he seems to have improved tremendously. He is alert. He is awake. He is oriented and he seems to be very well at the current moment. Otherwise, we will continue plan of care. We advised the patient and his girlfriend for the patient to stay longer for further treatment and care, but the patient seems to be insistent on leaving against medical advice. He reports to us that he is currently at his baseline and this is how he normally is at home. On any rate, we also have the girlfriend, who is going to come and evaluate him and talk to him as well at bedside, but it seems that he will be more insistent on leaving against medical advice. Risks were discussed with the patient as well as the scientific artist and they seemed to be verbalized understanding and seems that he will leave against medical advice. MD ALEX Parmar/SUSANA /[id number]
--- NOTE | 2020-04-26 13:42 | NUR ---
ST Note: EMR reviewed. Pt wanting to leave AMA. Will defer cognitive-communicative therapy for now.
--- NOTE | 2020-04-26 14:00 | NUR ---
Psych was here to see pt before he left AMA and explained all risks involved and they feel that he is alert and orientated. Pt expressed same feeling to want to discharge against medical advice. He states he feel follow up outpatient with his physician.
--- NOTE | 2020-04-26 14:20 | NUR ---
Pt left against medical advice at this time. Physicians spoke with patient and girlfriend about risks related to leaving against medical advice and patient insisted on discharging himself. Pt stated he understands risks of leaving against medical advice. 0 s/s of acute distress noted, denies any pain at time of discharge. Pt aox3 and able to verbalize at time of discharge.
--- NOTE | 2020-04-26 15:09 | Progress Note ---
DATE: 04/26/2020 Psychiatric Progress Note SUBJECTIVE: The patient is in the room. He is alert, awake, and oriented to self, place, time, and year. The patient claims that he would like to go home, as he is not able to get the kind of help he needs, i.e., therapy and does not want to have to move in here hospital stay due to his lack of insurance. The patient claims he is willing to followed up with primary care doctor and agrees to stop the alcohol use. The patient is intermittently confused as per the nurse, but he is not combative or agitated. He denies any suicidal or homicidal ideation. He denies any hallucination. The patient verbalized that if he has major medical concern, he would seek help and call 911 if needed. Girlfriend, who is in the room reports that the patient is intermittently confused. She has concern of him getting for the seizures, but both the girlfriend and the patient agrees to seek help from primary care doctor or seizure medication management. The patient lives with a girlfriend and a mom, and they both girlfriend and mom stay at home as well as the patient. The patient is taking his medication. Denies any side effects. The patient appears to understand the reasons of his wanting to leave the hospital against medical advice and has plan to seek help if medical issues arises. ASSESSMENT: 1. Adjustment disorder with mixed mood. 2. Alcohol use. 3. Rule out psychosis. PLAN: 1. To continue with Zoloft 50 mg p.o. daily. 2. Continue with p.r.n. Ativan and Risperdal. 3. Recommend alcohol cessation. 4. Based on today's assessment, the patient has capacity to make decision regarding his discharge planning at this time. 5. The patient is cleared from Psychiatry standpoint to go home with family members and recommend the patient to follow up with medical and Neurology as per recommendation. Discussed with nursing staff and attending. Dictated by Betsy Ventura PA-C Vinicio Haywood MD QTV/MODL /[id number]
--- NOTE | 2020-05-01 01:43 | Discharge Summary ---
FINAL DISCHARGE DIAGNOSES: 1. Left against medical advice. 2. Metabolic encephalopathy-resolved. 3. Chronic alcohol abuse. 4. Urinary tract infection. 5. Generalized weakness. 6. Polysubstance abuse. CONSULTANTS: Neurology and Psychiatry. VITAL SIGNS: Temperature is 97.6, pulse 90, respiratory rate 17, blood pressure 131/91, pulse ox 99% on room air. LABORATORY DATA: Show white count 4.1, hemoglobin 8.7, hematocrit is 26, and platelets is 109. Chemistry; sodium 140, potassium 3.7, chloride 105, bicarb 25, anion gap of 13, BUN is 8, creatinine is 0.58, glucose is 113. Hemoglobin A1c was 5.2. LFTs; total bilirubin is 1.5, AST 157, ALT 70, alkaline phosphatase 123. CK was 20. Troponins was 0.002. Albumin was 3.4. TSH level was 0.894. Vitamin B12 of 747. Prolactin level was 12.8. Urinalysis consistent with UTI. Toxicology screen; urine drug screen was found to be negative. Alcohol level negative. A valproic acid, phenytoin, and phenobarbital were all undetectable. Coronavirus was negative. MICROBIOLOGY: The patient had a blood culture 1 of 2, that showed gram-positive rods, seems to be more contaminated. The other blood culture was no growth. Urine culture, no growth. IMAGING STUDIES: CT of the brain, no acute intracranial abnormality. Chest x-ray, no acute thoracic radiographic abnormality. MRI of the brain, no acute intracranial abnormality, particularly no infarct, hemorrhage, or mass. EEG was found to be normal. HOSPITAL COURSE: A 39-year-old male, morbidly obese, history of chronic alcohol abuse and polysubstance abuse, came in with underlying altered mental status and had difficulty ambulating. The patient was admitted and Neurology and Psychiatry were consulted. The patient had an extensive workup while here in the hospital stay. He was initially treated with antibiotics for concerns for underlying infection and UTI. His blood cultures 1 of 2 showed gram-positive rods, seems to be more contaminant. Urine cultures were negative. The patient had MRI of the brain, CT of the brain including an EEG, which were all found to be within normal range. Chest x-ray was also within normal range. I spoke to Neurology. It was felt that the patient's encephalopathy could be secondary to infection. In fact, the patient's encephalopathy improved throughout the hospital course. He left against medical advice. He was alert and awake, and he was oriented x4 with no issues. Psychiatry also evaluated him and stated that the patient was back to his baseline. The patient needed more physical therapy and occupational therapy while here in the hospital stable, but he did not want to stay any longer and he left against medical advice on 04/26/2020. We discussed with him the risks involved in leaving against medical advice, but despite that he signed appropriate documentation, which is now currently left in the chart. On the day of discharge, the patient was alert, awake, and oriented, and he had no other issues and he understood what he was doing and in fact, I also had the floor nurse and the charge nurse at bedside when I spoke to the patient about him leaving against medical advice and they felt the patient was at his baseline now. We spoke to his training engineer and she also stated that he is at his baseline and in fact, he does this a lot at multiple hospitals which he leaves against medical advice. On the day of discharge, vital signs were stable, labs reviewed and stable. The patient is seen and evaluated and examined thoroughly on the day of discharge with no other complaints. The patient verbalized understanding and agrees to plan of care to follow with the PCP in the event he ever gets any worsening issues. Left against medical advice. DISPOSITION: Left against medical advice. CONDITION: Stable. The patient left against medical advice. We spoke with him about leaving and needing further workup and management, but he signed appropriate documentation and left against medical advice. MD ALEX Parmar/SUSANA /[id number]
== END 2020-04-26 14:27 | disposition left against medical advice (07) | DRG 71 ==
LOC: ER 01:36 → ERHOLD 04:49 → MED/SURG2 05:58
PROVIDERS: ADMIT Internal Medicine; ATTEND Internal Medicine
DX: G93.41 Metabolic encephalopathy (principal); N39.0 Urinary tract infection, site not specified; F10.20 Alcohol dependence, uncomplicated; F19.10 Other psychoactive substance abuse, uncomplicated
CPT/HCPCS: 36415; 36600; 70450; 70551; 71045; 80048; 80053; 80164; 80184; 80185; 80307; 80320; 81001; 82140; 82550; 82553; 82607; 82805; 82948; 83036; 83605; 84146; 84443; 84484; 84550; 85025; 85651; 87040; 87071; 87086; 87205; 92523; 93005; 95812; 97139; 99285; J0692; J0696; J1650; J1817; J3411; J7030; U0002